=== PATIENT | male | born 1965 | race Caucasian/White ===

== ENCOUNTER → 2018-02-25 09:39 | Outpatient (CLI) | payer BC, SELFPAY ==
--- NOTE | 2018-02-25 09:45 | US_ITS ---
FNA w guidance, HISTORY: ITS.REASON: RT CERVICAL LYMPHADENOPATHY ORDERING PHYSICIAN: Charles Baptiste MD PATIENT AGE: 52 years COMPARISON: None TECHNIQUE: Following obtaining informed consent, using aseptic technique and local anesthesia with buffered lidocaine, fine-needle aspiration was performed of the nodule of interest using sonographic guidance. 3 passes were made into the nodule with a 25-gauge needle for cytology and then 2 passes were made for RPMI. Specimen was given to cytology. The patient tolerated the procedure well without evidence of immediate complications and left the ultrasound suite in stable condition. CYTOLOGY:Negative for malignant cells. Please see cytology report IMPRESSION: Successful sonographic guided fine needle aspiration of the right neck nodule without Complications negative for malignancy. Please see cytology report for further recommendations
--- NOTE | 2018-02-25 09:45 | US_ITS ---
US soft tissue head and neck CLINICAL INDICATION: Cervical mass, abnormal CT ITS.REASON: RT CERVICAL LYMPHADENOPATHY ORDERING PHYSICIAN: Charles Baptiste MD PATIENT AGE: 52 years Comparison: None FINDINGS: There is a 3 x 2 cm oval area of decreased echogenicity in the right lateral neck consistent with enlarged cervical lymph node. An additional small lymph node is present inferior to this region measuring 1.3 cm. This is consistent with cervical adenopathy. IMPRESSION: Right-sided cervical adenopathy measuring up to 3 x 2 cm
[2018-02-25 11:54] LABS: Basophils # 0.1 K/mm3 (0-0.2); Basophils % 0.7 % (0.1-2.0); Eosinophils # 0.1 K/mm3 (0.0-0.4); Eosinophils % 0.8 % (0.1-12.0); Hematocrit 44.7 % (42.0-52.0); Hemoglobin 14.5 g/dL (14.1-18.0); Lymphocytes # 2.3 K/mm3 (0.7-4.5); Lymphocytes % 29.8 K/mm3 (10-50); Mean Corpuscular HGB Conc 32.5 g/dL (31.8-35.4); Mean Corpuscular Volume 92.4 fl (80-94); Mean Platelet Volume 7.7 fl (7.4-10.4); Monocytes # 0.6 K/mm3 (0.1-1.0); Monocytes % 7.1 % (1.7-9.3); Neutrophils # 4.8 K/mm3 (1.8-7.8); Neutrophils % 61.6 % (37.0-80.0); Platelet Count 228 K/mm3 (142-424); Red Blood Count 4.84 M/mm3 (4.60-6.20); Red Cell Distribution Width 12.9 % (11.5-17.5); White Blood Count 7.8 K/mm3 (4.8-10.8)
[2018-02-25 12:57] LABS: Alanine Aminotransferase 19 U/L (12-78); Albumin Level 3.7 gm/dL (3.4-5.0); Albumin/Globulin Ratio 1.4 (1.1-1.8); Alkaline Phosphatase 51 U/L (46-116); Anion Gap 12.1 mEq/L (5-15); Aspartate Amino Transferase 10 U/L (15-37); Bilirubin,Total 0.4 mg/dL (0.2-1.0); Blood Urea Nitrogen 10 mg/dL (7-18); Calcium 9.1 mg/dL (8.5-10.1); Carbon Dioxide 28 mmol/L (21.0-32.0); Chloride 107 mmol/L (98-107); Creatinine,Serum 1.04 mg/dL (0.70-1.30); Estimated Glomerular Filt Rate 75 ml/min (>60); GFR (African American) 91 ML/MIN (>60); Globulin 2.7 gm/dl (1.3-3.2); Glucose 90 mg/dL (74-106); Potassium 5.1 mmoL/L (3.5-5.1); Sodium 142 mmol/L (136-145); Total Protein,Serum 6.4 gm/dL (6.4-8.2)
== END ==
PROVIDERS: PCP Family Medicine; Visit Provider Otolaryngology
DX: R59.0 Localized enlarged lymph nodes (principal)
CPT/HCPCS: 10022; 36415; 76536; 80053; 85025

== ENCOUNTER → 2018-11-24 07:40 | Outpatient (CLI) | payer BC, SELFPAY ==
--- NOTE | 2018-11-24 07:47 | AS_ITS ---
Renal Arterial Duplex Indications: Acute kidney injury. S/p chemo. IMPRESSIONS 1. Normal bilateral renal artery evaluation. 2. RI's 0.7 bilaterally. History: Risk factors: Current tobacco use. Complete renal arterial duplex. Duplex scan and Doppler flow study including spectral analysis, color and wheat scale imaging. Height: Height: 175.3cm. Height: 69in. Weight: Weight: 61.2kg. Weight: 134.7lb. Body mass index: BMI: 19.9kg/m^2. Body surface area: BSA: 1.72m^2. Location: Vascular laboratory. Patient status: Outpatient. Tables: Arterial flow: + +--------+--------+ Location V sys V ed + +--------+--------+ Right renal - proximal 138cm/s 27.4cm/s + +--------+--------+ Right renal - mid 129cm/s 41.1cm/s + +--------+--------+ Right renal - distal 112cm/s 29.7cm/s + +--------+--------+ Left renal - proximal 111cm/s 29.4cm/s + +--------+--------+ Left renal - mid 50.5cm/s 19.8cm/s + +--------+--------+ Left renal - distal 86.1cm/s 11.2cm/s + +--------+--------+ Right renal-origin 104cm/s 29.3cm/s + +--------+--------+ Left renal-origin 97.7cm/s 19.9cm/s + +--------+--------+ Aorta-prox 70.9cm/s -------- + +--------+--------+ Renal anatomy: + +------+-----+ Left Right + +------+-----+ Long axis 10.6cm 9.3cm + +------+-----+ Short axis 5.5cm 6.8cm + +------+-----+ Cortical thickness 1.9cm 1.6cm + +------+-----+ Velocity ratios: + +-----+ V sys + +-----+ Right renal/aortic 1.9 + +-----+ Left renal/aortic 1.6 + +-----+ (Report amended ) Electronically signed by: Jose Cotter [id number]
== END ==
PROVIDERS: PCP Family Medicine; Visit Provider Internal Medicine Nephrology
DX: N17.9 Acute kidney failure, unspecified (principal)
CPT/HCPCS: 93976

== ENCOUNTER 2024-08-27 12:26 | Day surgery (SDC) | payer OTHER, SELFPAY ==
[2024-08-27 12:42] VITALS: BP 189/77; PULSE 74; RESP 16; TEMP 36.6; O2SAT 99
[2024-08-27 12:48] VITALS: BMI 20.7
[2024-08-27] MEDS: LACTATED RINGERS 1000ML 1,000 ML 50 ML IV (12:50)
--- NOTE | 2024-08-27 13:00 | P.PNANES_ITS ---
[facility] Disclaimer: The information contained in this section may have been updated after the patient was seen, as this information can be updated by other users. Medical History Hypothyroidism Hx of emphysema Hypercholesterolemia History of throat cancer Blockage of coronary artery of heart Mass in neck Surgical History [place] teeth extracted H/O excision of mass History of tonsillectomy and adenoidectomy Family History Grandfather Cancer Social History Smoking Status: Current every day smoker alcohol intake: never substance use type: denies use current occupational status: employed Travel in the last 8 weeks: None Have you lived/traveled outside [place] in past 30 days?: No Contact w/someone who lives/traveled outside US past 30 days?: No Exposure to someone with infectious disease in past 14 days?: No Do you have a fever (greater than 100.4 F or 38 C)?: No Have you tested positive for COVID-19: No Exposed to someone with COVID-19 in past 14 days?: No Do you have a sore throat?: No Do you have a cough?: No Do you have any weakness?: No Are you experiencing any nausea/vomitting?: No Do you have any diarrhea?: No Are you experiencing any unusual bleeding?: No Do you have any muscle aches/pain?: No Do you have any abdominal pain?: No Are you experiencing loss of taste or smell?: No [facility] Anesthesia Checklist Patient Identification Patient Identification: Arm Band Structural Data Admitted From: Home Planned Operative Procedure/s: Colonoscopy Consent for Planned Operative Procedure(s) Verified: Yes Verified Documents: Surgical Consent and History and Physical NPO Status Verified Time NPO: 00:00 Additional verifications Anesthesia Reactions: No Airway Assessment Mallampati Score:: Class II C-Spine Mobility Assessed: Yes TMJ Mobility Assessed: Yes Dentition: Good Dentition Neurological Assessment Level of Consciousness: Awake, Alert and Appropriate Anesthesia Plan Anesthesia Risk discussed: Yes Anesthesia Plan: Verified ASA Class: III Anesthesia Type: MAC
[2024-08-27 13:06] VITALS: O2SAT 100
--- NOTE | 2024-08-27 13:08 | P.HP_ITS ---
History of Present Illness *Admission Date: 08/27/24 *Reason for visit:: C. difficile/diarrhea/change in bowel habits *History of present illness: Mr. Jackson is a 59-year-old gentleman who has had a change in bowel habits with small loose stools and abdominal crampy discomfort. He did have C. difficile at the beginning of April. This was treated with Flagyl and he had resurgence. He was later treated with Dificid and improved. The patient is here for diagnostic colonoscopy. The examination is deemed medically necessary for diagnostic colonoscopy. The patient has been seen, interviewed and examined prior to the procedure by both myself and the anesthesia provider. [facility] Disclaimer: The information contained in this section may have been updated after the patient was seen, as this information can be updated by other users. Medical History Hypothyroidism Hx of emphysema Hypercholesterolemia History of throat cancer Blockage of coronary artery of heart Mass in neck Surgical History [place] teeth extracted H/O excision of mass History of tonsillectomy and adenoidectomy Family History Grandfather Cancer Social History Smoking Status: Current every day smoker alcohol intake: never substance use type: denies use current occupational status: employed Travel in the last 8 weeks: None Have you lived/traveled outside US in past 30 days?: No Contact w/someone who lives/traveled outside US past 30 days?: No Exposure to someone with infectious disease in past 14 days?: No Do you have a fever (greater than 100.4 F or 38 C)?: No Have you tested positive for COVID-19: No Exposed to someone with COVID-19 in past 14 days?: No Do you have a sore throat?: No Do you have a cough?: No Do you have any weakness?: No Are you experiencing any nausea/vomitting?: No Do you have any diarrhea?: No Are you experiencing any unusual bleeding?: No Do you have any muscle aches/pain?: No Do you have any abdominal pain?: No Are you experiencing loss of taste or smell?: No Review of Systems Review of Systems Review of systems (narrative): Negative *Cardiovascular Comments: Negative *Gastrointestinal Comments: Negative *Genitourinary Comments: Negative *Musculoskeletal Comments: Negative *Neurologic Comments: Negative Meds Home Medications and Allergies Home Medications ?Medication ?Instructions ?Recorded ?Confirmed ?Type aspirin 81 mg tablet,delayed 81 mg PO DAILY 06/17/24 08/27/24 History release budesonide-formoterol HFA 160 2 puff inhalation BID 06/17/24 08/27/24 History mcg-4.5 mcg/actuation aerosol inhaler (Symbicort) cyanocobalamin (vitamin B-12) 1,000 mcg PO DAILY 06/17/24 08/27/24 History 1,000 mcg tablet levothyroxine 25 mcg tablet 25 mcg PO DAILY 06/17/24 08/27/24 History nitroglycerin 0.4 mg sublingual 0.4 mg buccal NEEDED PRN Chest 06/17/24 08/27/24 History tablet Pain rosuvastatin 40 mg tablet 40 mg PO DAILY 06/17/24 08/27/24 History vitamin E (dl, acetate) 180 mg 180 mg PO DAILY 06/17/24 08/27/24 History (400 unit) capsule New Prescriptions to Start Prescriptions: Allergies Allergy/AdvReac Type Severity Reaction Status Date / Time No Known Allergies Allergy Verified 08/27/24 12:42 Exam Data for Last 24 hours Vital signs and Labs for Last 24 Hours: Temp Pulse Resp BP Pulse Ox O2 Del Method O2 Flow Rate 97.9 F 74 16 189/77 H 99 Nasal Cannula 5 08/27/24 12:42 08/27/24 12:42 08/27/24 12:42 08/27/24 12:42 08/27/24 12:42 08/27/24 13:06 08/27/24 13:06 I & O for Last 24 hours: Intake & Output 08/24/24 08/25/24 08/26/24 08/27/24 23:59 23:59 23:59 23:59 Weight 140 lb *Routine HEENT Exam Head: Present normocephalic Eye: Present EOMI and PERRL ENT: Present mucous membranes moist *Routine Neck Exam Neck: Present supple *Routine Respiratory Exam Respiratory: Present CTA bilaterally *Routine Cardiovascular Exam Cardiovascular: Present RRR *Routine Abdominal Exam Abdominal: Present soft and normoactive bowel sounds; Absent tenderness *Routine Rectal Exam Rectal:: deferred *Routine Genitalia Exam Genitalia:: deferred *Routine Extremities Exam Extremities: Absent cyanosis, clubbing or edema *Routine Skin Exam Skin: Present warm; Absent rash *Routine Neurological Exam Neurological: Present alert and oriented X3 Assessment and Plan *Assessment and plan (1) Change in bowel habits: Status: Acute Category: Medical Code(s): R19.4 - Change in bowel habit (2) Generalized abdominal pain: Status: Acute Category: Medical Code(s): R10.84 - Generalized abdominal pain (3) Bloating: Status: Acute Category: Medical Code(s): R14.0 - Abdominal distension (gaseous) Plan A/P: 1. Change in bowel habits with generalized abdominal pain and bloating is the preprocedural diagnosis. The patient will be anesthetized/sedated using MAC sedation. The patient has been seen and examined. Cardiac and lung assessment prior to the examination is stable. Proceed with planned diagnostic colonoscopy
--- NOTE | 2024-08-27 13:15 | HMH.PROCNOTE ---
[facility] Procedure Note Date: 08/27/24 Time: 13:31 Procedure Note:: Colonoscopy Procedure Report: Colonoscopy with cold biopsies Endoscopist: Wyatt Arndt II, MD Referring physician: Renetta Arreaga DO Date of Procedure: August 27, 2024 Equipment: Olympus 190 variable stiffness pediatric colonoscope Sedation: MAC sedation Indication: Mr. Jackson is a 59-year-old gentleman who had a tooth infection about a year ago and was placed on antibiotics. He also had coronary artery stenosis. Surgery on his tooth was delayed until 3 or 4 months ago. He was on antibiotics up until February. In January he started having incomplete defecation and was placed on Linzess. He tried stool softeners. Gradually started having more cramps, fever and liquid stools. He did go to the emergency department at [facility] [place] and his stool panel was positive for C. difficile. He was treated with vancomycin. Everything improved but a week after completion of antibiotics he had a recurrence of symptoms and retested positive for C. difficile and was treated with Flagyl. He again had some improvement and then resurgence of symptoms. He had fever up to 101.5. He does report mucus in his stool. He had a colonoscopy in 2018 ([facility]) and had no polyps and was given 10-year surveillance interval. He reports no family history of inflammatory bowel disease. His paternal grandfather had colon cancer in his mid 60s. The patient more recently had Dificid full course and improved. He later got vancomycin and had improvement. He has been fairly regular for the last 3 weeks and doing better. He reports no rectal bleeding, gassiness or bloating. He has had no abdominal pain. He has been on MiraLAX plus Metamucil. Procedure: Prior to the procedure, a history and physical exam was performed, and patient's medications and allergies were reviewed. The risks, benefits and alternatives of the sedation and procedure were discussed with the patient. All questions were answered and informed consent was obtained. The patient was brought to the procedure room. Patient identification and proposed procedure were verified by the physician and the nurse. The patient was placed in a left lateral decubitus position and the scope was passed under direct vision. Throughout the procedure, the patient's blood pressure, pulse, and oxygen saturations were monitored continuously. The colonoscopy was accomplished without difficulty. The patient tolerated the procedure well. Findings: On digital rectal examination there was normal rectal tone. There were no external hemorrhoids. The prostate was 2+, smooth, soft, symmetric without nodules. The colonoscope was introduced through the anal canal to the rectum and advanced to the cecum. The ileocecal valve and appendiceal orifice were identified. The scope was advanced a short distance into the ileum which appeared grossly normal. The scope was then withdrawn into the colon. The cecum, ascending, transverse, descending, sigmoid and rectum were grossly normal. There were no mucosal abnormalities identified. Cold biopsies were taken randomly from the right colon to rule out microscopic colitis. Upon retroflexion within the rectum there were grade 1-2 internal hemorrhoids. The preparation was excellent throughout with [place] Preparation Score of 9. The cecal time was 10 minutes. Impression: 1. 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 For further recurrences, I would strongly consider Vowst. Vowst was FDA approved and is the first and only FDA approved oral therapeutic microbiota-based treatment for the prevention of C. difficile recurrence. The efficacy is similar to fecal transplantation with obvious advantages and simplicity. The safety profile is excellent. This is a microbiota capsule. Comparative studies show no C. difficile recurrence at 6 months and 80% of patients taking Vowst versus 50% of patients that have had treatment with antibiotics (Dificid or vancomycin). It is now approved after first recurrence. Certainly I would continue a probiotic. I would also continue psyllium primarily for the gut microbiome. Psyllium fiber (i.e. Konsyl or Metamucil) comes from the seeds of Plantago ovata plants (blond plantain). These seeds produce a jellylike material called mucilage which come in a variety of shapes and forms and these feature long chain sugars called polysaccharides. It is the polysaccharides that lead to the production of beneficial short chain fatty acids that positively contribute to the gut microbiome and araceli. The actual physical state of the fiber has a major impact on the good bacteria reducing colonic bacterial fermentation and gas formation. I will follow-up the biopsies. The patient will not require surveillance colonoscopy again for 10 years.
[2024-08-27 13:36] VITALS: BP 118/71; PULSE 63; RESP 18; O2SAT 100
[2024-08-27 13:46] VITALS: BP 126/75; PULSE 62; RESP 18; TEMP 36.5; O2SAT 100
[2024-08-27 13:56] VITALS: BP 123/78; PULSE 71; RESP 18; O2SAT 99
[2024-08-27 14:06] VITALS: BP 135/78; PULSE 70; RESP 18; O2SAT 100
== END 2024-08-27 14:10 | disposition home or self-care (01) ==
PROVIDERS: PCP Family Medicine; Visit Provider Internal Medicine Gastroenterology
PROC: 0DJD8ZZ Inspection of Lower Intestinal Tract, Via Natural or Artificial Opening Endoscopic (ICD-10-PCS; CPT 45378; principal; 2024-08-27 14:00)
DX: R19.4 Change in bowel habit (principal); R10.84 Generalized abdominal pain; R14.0 Abdominal distension (gaseous); R19.7 Diarrhea, unspecified; K64.8 Other hemorrhoids; Z80.0 Family history of malignant neoplasm of digestive organs
CPT/HCPCS: 45380; J7120

== ENCOUNTER 2024-09-21 10:58 | Outpatient (CLI) | payer OTHER, SELFPAY ==
[2024-09-22 16:04] LABS: C difficile Toxins AB, EIA Negative (Negative)
== END 2024-09-21 23:59 | disposition home or self-care (01) ==
LOC: LAB 10:59
PROVIDERS: Internal Medicine Gastroenterology; PCP Family Medicine; Visit Provider Nurse Practitioner Family
DX: A04.72 Enterocolitis due to Clostridium difficile, not specified as recurrent (principal)
CPT/HCPCS: 87324; 87493